=== PATIENT | female | born 1975 | race American Indian/Alaskan Native ===

== ENCOUNTER 2020-01-03 21:38 | Emergency (ER) | payer BC ==
--- NOTE | 2020-01-03 21:55 | EDM.PDOC ---
ED HPI GENERAL MEDICAL PROBLEM - General Chief Complaint: Lower Extremity Injury/Pain Stated Complaint: RIGHT FOOT, FELL IN HOLE SEVERE PAIN THROBBING Time Seen by Provider: 01/03/20 21:53 Source of Information: Reports: Patient History Limitations: Reports: No Limitations - History of Present Illness INITIAL COMMENTS - FREE TEXT/NARRATIVE: twisted right foot MASSEUR/MASSEUSE. - Related Data Allergies Allergy/AdvReac Type Severity Reaction Status Date / Time No Known Allergies Allergy Verified 01/03/20 21:46 Home Meds: Home Meds Melatonin 5 mg PO BEDTIME 01/03/20 [History] diphenhydrAMINE [Benadryl] 25 mg PO BEDTIME 01/03/20 [History] Past Medical History Dermatologic History: Reports: None - Past Surgical History GI Surgical History: Reports: Cholecystectomy Musculoskeletal Surgical History: Reports: Other (See Below) Other Musculoskeletal Surgeries/Procedures:: reports foot surgery Social & Family History - Tobacco Use Smoking Status *Q: Current Every Day Smoker Years of Tobacco use: 20 Packs/Tins Daily: 1 - Caffeine Use Caffeine Use: Reports: None - Recreational Drug Use Recreational Drug Use: No Review of Systems - Review of Systems Review Of Systems: Comprehensive ROS is negative, except as noted in HPI. ED EXAM, GENERAL - Physical Exam Exam: See Below Exam Limited By: No Limitations General Appearance: Alert, WD/WN, Mild Distress, Other (discomfort) Ears: Hearing Grossly Normal Throat/Mouth: Normal Voice, No Airway Compromise Head: Atraumatic Neck: Non-Tender, Full Range of Motion Respiratory/Chest: No Respiratory Distress Cardiovascular: Regular Rate, Rhythm GI/Abdominal: Soft, Non-Tender Extremities: Other (right foot mild swelling tender R/P, NV nwl. gait limited to pain) Neurological: Alert, Oriented, Normal Cognition, No Motor/Sensory Deficits Psychiatric: Tearful Skin Exam: Warm, Dry, Normal Color Lymphatic: No Adenopathy Course - Vital Signs Last Recorded V/S: Last Vital Signs Temp 36.2 C 01/03/20 21:49 Pulse 93 01/03/20 21:49 Resp 18 01/03/20 21:49 BP 173/77 H 01/03/20 21:49 Pulse Ox 98 01/03/20 21:49 - Orders/Labs/Meds Meds: Medications Discontinued Medications Generic Name Dose Route Start Last Admin Trade Name Freq PRN Reason Stop Dose Admin Hydrocodone Bitart/Acetaminophen 1 tab 01/03/20 22:35 [place] 325-10 Mg PO 01/03/20 22:36 ONETIME ONE - Re-Assessments/Exams Free Text/Narrative Re-Assessment/Exam: 01/03/20 22:38 results discussed with pt Departure - Departure Time of Disposition: 22:39 Disposition: Home, Self-Care 01 Condition: Good Clinical Impression: Foot fracture, right Qualifiers: Encounter type: initial encounter Fracture type: closed Qualified Code(s): S92.901A - Unspecified fracture of right foot, initial encounter for closed fracture - Discharge Information Instructions: Avulsion Fracture of the Foot Forms: ED Department Discharge Additional Instructions: 1) wear boot and use crutches 2) elevate foot as much as possible next 4 to 5 days 3) see clinic tomorrow for ORTHOPEDIC REFERRAL FOR FOOT FRACTURE rx givne; vicodin 5/325mg tid prn x 12 Sepsis Event Note (ED) - Evaluation Sepsis Screening Result: No Definite Risk - Focused Exam Vital Signs: Vital Signs Temp Pulse Resp BP Pulse Ox 01/03/20 21:49 36.2 C 93 18 173/77 H 98
--- NOTE | 2020-01-03 22:27 | CR ---
PROCEDURE INFORMATION: Exam: XR Right Foot Complete Exam date and time: 01/03/2020 10:13 PM Age: 44 years old Clinical indication: Other: Pain; Additional info: Twisted TECHNIQUE: Imaging protocol: XR Right foot. Views: 3 or more views. COMPARISON: No relevant prior studies available. FINDINGS: Bones/joints: There is some cortical irregularity seen along the superior medial aspect of the navicular bone, findings could represent nondisplaced avulsion fracture. Soft tissues: Normal. IMPRESSION: Cortical irregularity seen along the superior medial aspect of the navicular bone, findings that could represent nondisplaced avulsion fracture.
[2020-01-03] MEDS ORDERED: Acetaminophen/HYDROcodone 325-10 MG Tab PO ONE (22:35)
== END 2020-01-03 22:50 | disposition home or self-care (01) ==
LOC: DL.ED 21:38
DX: S92.251A Displaced fracture of navicular [scaphoid] of right foot, initial encounter for closed fracture (principal); F17.210 Nicotine dependence, cigarettes, uncomplicated; Z90.49 Acquired absence of other specified parts of digestive tract; X50.1XXA Overexertion from prolonged static or awkward postures, initial encounter
CPT/HCPCS: 73630-RT; 99283-25; 99284; A9270-GY